=== PATIENT | male | born 1995 | race African-American/Black ===

== ENCOUNTER 2019-12-21 12:47 | Emergency (ER) | payer OTHER ==
[~2019-12-21] VITALS: Ht 172.7 cm; Wt 67.0 kg
[2019-12-21 12:49] VITALS: BP 112/58
[2019-12-21] MEDS ORDERED: ONDANSETRON HCL 4MG TABLET PO ONE (14:15)
== END 2019-12-21 14:26 | disposition home or self-care (01) ==
LOC: ER 13:19
DX: R11.2 Nausea with vomiting, unspecified (principal)
CPT/HCPCS: 82962; 99283; Q0162